=== PATIENT | male | born 1965 | race Caucasian/White ===

== ENCOUNTER 2023-08-22 10:24 | Outpatient (CLI) | payer OTHER, SELFPAY ==
--- NOTE | 2023-08-22 10:40 | ECG_ITS ---
SEE SCANNED COPY FOR CONFIRMED REPORT MTDD
[2023-08-22 10:51] LABS: Basophils Absolute Auto 0.1 K/mm3 (0.0-0.1); Basophils Percent Auto 0.5 % (0.2-1.2); Eosinophils Absolute Auto 0.1 K/mm3 (0-0.3); Eosinophils Percent Auto 1.3 % (0-4.4); Hematocrit 52.7 % (42.0-52.0); Hemoglobin 18.4 g/dL (14.0-18.0); Immature Granulocyte Absolute 0.06 K/mm3 (0.00-0.031); Immature Granulocyte Percent A 0.6 % (0-0.5); Lymphocytes Absolute Auto 1.81 K/mm3 (0.9-3.2); Mean Corpuscular HGB Conc 34.9 g/dl (32-36); Mean Corpuscular Volume 94.4 fl (80-100); Mean Platelet Volume 10.6 fl (7.4-10.4); Monocytes Percent Auto 9.8 % (2.6-8.5); Neutrophils Absolute Auto 7.5 K/mm3 (1.3-6.7); Neutrophils Percent Auto 70.8 % (45.5-73.1); Platelet Count Result 269 k/mm3 (150-375); Red Blood Count 5.58 M/mm3 (4.6-6.20); Red Cell Distribution Width 11.9 % (11.5-14.5); White Blood Count 10.6 K/mm3 (4.5-10.0)
[2023-08-22 11:17] LABS: Creatinine Urine 84.1 mg/dL
[2023-08-22 11:21] LABS: MALB Creatinine Ratio 7.8 mg/g (0-30); Microalbumin Urine Random 6.6 mg/L (0-16.7)
[2023-08-22 11:53] LABS: Alanine Aminotransferase 38 U/L (6-50); Albumin Level 4.8 g/dL (3.5-5.1); Alkaline Phosphatase 160 U/L (38-126); Anion Gap 14 mmol/L (4-12); Aspartate Amino Transferase 46 U/L (17-59); Bilirubin,Total 1.8 mg/dL (0.2-1.3); Blood Urea Nitrogen 29 mg/dL (9-20); Carbon Dioxide 21 mmol/L (22-30); Chloride 100 mmol/L (98-107); Estimated Glomerular Filt Rate > 60; Glucose 241 mg/dL (65-110); LDL Cholesterol Direct 181 mg/dL; Potassium 4.4 mmol/L (3.4-5.0); Prostate Specific Antigen 0.8 ng/mL (< OR = 4.0); Sodium 135 mmol/L (137-145)
[2023-08-22 12:03] LABS: Cholesterol 381 mg/dL (0-200); Triglycerides 934 mg/dL (<150)
== END 2023-08-22 10:25 | disposition home or self-care (01) ==
LOC: ANHLAB 10:26
PROVIDERS: PCP Family Medicine; Visit Provider Physician Assistant
DX: Z12.5 Encounter for screening for malignant neoplasm of prostate (principal); E11.65 Type 2 diabetes mellitus with hyperglycemia; E78.5 Hyperlipidemia, unspecified; I10 Essential (primary) hypertension; R07.9 Chest pain, unspecified; Z13.29 Encounter for screening for other suspected endocrine disorder
CPT/HCPCS: 36415; 80053; 80061; 82043; 84153; 84443; 84484; 85025; 93005; G0103

== ENCOUNTER 2023-08-22 12:25 | Observation (INO) | payer OTHER, SELFPAY ==
[2023-08-22] VITALS (8 sets, daily range): BP systolic 119–153; BP diastolic 80–92; PULSE 87–107; RESP 13–20; TEMP 36.3–36.4; O2SAT 91–98; BMI 32.1
--- NOTE | ~2023-08-22 | XR_ITS ---
EXAMINATION: XR chest 2V Exam Date/Time: 08/22/2023 13:00 CDT HISTORY: chest pain RADIATES TO RT ARM X 1 DAY HIGH TROPONIN Comparison: None. RESULT: Lines, tubes, and devices: None. Lungs and pleura: Clear. Cardiomediastinal silhouette: Unremarkable. Other: No acute upper abdominal finding. Multilevel mild vertebral body height loss/anterior wedge d eformity at T7-L1. IMPRESSION: No acute cardiopulmonary process. Multilevel thoracic and lumbar vertebral body compression fractures, may be acute or chronic, correla te with pain/tenderness. Reviewed, dictated and finalized at location K. IMPRESSION: No acute cardiopulmonary process. Multilevel thoracic and lumbar vertebral body compression fractures, may be acu te or chronic, correlate with pain/tenderness.
--- NOTE | 2023-08-22 12:37 | ECG_ITS ---
SEE SCANNED COPY FOR CONFIRMED REPORT MTDD
[2023-08-22] MEDS: ASPIRIN 81 MG CHEWABLE TABLET 324 MG PO (12:48)
--- NOTE | 2023-08-22 12:48 | PC.NURSE ---
pt took (1) 81mg aspiring prior to arrival.
[2023-08-22 13:03] LABS: Basophils Absolute Auto 0.1 K/mm3 (0.0-0.1); Basophils Percent Auto 0.6 % (0.2-1.2); Eosinophils Absolute Auto 0.1 K/mm3 (0-0.3); Eosinophils Percent Auto 1.3 % (0-4.4); Hematocrit 53.1 % (42.0-52.0); Hemoglobin 18.3 g/dL (14.0-18.0); Immature Granulocyte Absolute 0.04 K/mm3 (0.00-0.031); Immature Granulocyte Percent A 0.4 % (0-0.5); Lymphocytes Absolute Auto 2.03 K/mm3 (0.9-3.2); Lymphocytes Percent Auto 19.7 % (18.3-44.2); Mean Corpuscular HGB Conc 34.5 g/dl (32-36); Mean Corpuscular Volume 95.7 fl (80-100); Mean Platelet Volume 10.9 fl (7.4-10.4); Monocytes Absolute Auto 0.9 K/mm3 (0.1-0.6); Monocytes Percent Auto 9.1 % (2.6-8.5); Neutrophils Absolute Auto 7.1 K/mm3 (1.3-6.7); Neutrophils Percent Auto 68.9 % (45.5-73.1); Platelet Count Result 260 k/mm3 (150-375); Red Blood Count 5.55 M/mm3 (4.6-6.20); Red Cell Distribution Width 11.8 % (11.5-14.5); White Blood Count 10.3 K/mm3 (4.5-10.0)
--- NOTE | 2023-08-22 13:08 | PC.NURSE ---
Pt off the floor with xray at this time, pt was taken down by xray without cardiac monitoring.
[2023-08-22 13:11] LABS: Alanine Aminotransferase 38 U/L (6-50); Albumin Level 4.7 g/dL (3.5-5.1); Alkaline Phosphatase 155 U/L (38-126); Anion Gap 11 mmol/L (4-12); Aspartate Amino Transferase 46 U/L (17-59); Bilirubin,Total 1.9 mg/dL (0.2-1.3); Blood Urea Nitrogen 29 mg/dL (9-20); Calcium 9.8 mg/dL (8.4-10.2); Carbon Dioxide 24 mmol/L (22-30); Chloride 97 mmol/L (98-107); Estimated CRCL calculation 75 ml/min; Estimated Glomerular Filt Rate > 60; Glucose 272 mg/dL (65-110); Potassium 4.3 mmol/L (3.4-5.0); Sodium 132 mmol/L (137-145)
[2023-08-22 13:18] LABS: INR 0.9; Prothrombin Time 12.2 Seconds (11.1-14.7)
[2023-08-22 13:19] LABS: Partial Thromboplastin Time 27.1 Seconds (22.3-36.8)
--- NOTE | 2023-08-22 13:26 | ED.GENADULT ---
HPI - General Adult General Chief complaint: Recheck/Abnormal Lab/Rx Stated complaint: elevated trop Time Seen by Provider: 08/22/23 12:37 History of Present Illness HPI narrative: patient is a 58-year-old male with history of diabetes who presents ER with a around the elevated troponin level. Patient reports on 08/18/23 he had about 9 hours of central chest pain/ pressure that radiated to his right shoulder. It did not allow him to sleep. Pain family went away and he was able to sleep. Denies any exertional shortness of breath or chest pain. No diaphoresis or vomiting. No history of heart disease. He follow-up with his doctor due to the chest pain and due to the fact that he is out of his hypertension medication and some of his diabetes medication. Outpatient lab work showed that he had a troponin level of 7.48 and he was referred to the ER. Related Data Home Medications Medication Instructions Recorded Confirmed atorvastatin 10 mg tablet (Lipitor) 10 mg PO HS 08/22/23 08/22/23 dulaglutide 0.75 mg/0.5 mL 0.75 mg subcut WEEKLY 08/22/23 08/22/23 subcutaneous pen injector (Trulicity) empagliflozin 25 mg-metformin ER 1 tablet PO DAILY 08/22/23 08/22/23 1,000 mg tablet,extended release 24hr (Synjardy XR) lisinopril 10 mg tablet 10 mg PO DAILY 08/22/23 08/22/23 Allergies Allergy/AdvReac Type Severity Reaction Status Date / Time Penicillins Allergy Unknown Unknown Verified 08/22/23 09:52 Review of Systems Review of Systems: All systems reviewed & are unremarkable except as noted in HPI and below Constitutional: Constitutional: Reports no additional constitutional complaints ENT: Reports system reviewed and no additional complaints, except as documented Cardiovascular: Cardiovascular: Reports chest pain, Denies rapid heart rate and Reports radiating jaw, neck or arm pain Respiratory: Respiratory: Reports no additional respiratory complaints Gastrointestinal: Gastrointestinal: Reports no additional gastrointestinal complaints Musculoskeletal: Musculoskeletal: Reports no additional musculoskeletal complaints Integumentary/Breasts: Skin/Breast: Reports system reviewed and no additional complaints, except as docu [facility] Past Medical History Medical History (Updated 08/22/23 @ 21:03 by Feliz Vora MD) Cigarette nicotine dependence Hyperlipidemia Hypertension Pancreatitis (11/2020) Type 2 diabetes mellitus Surgical History Surgical History (Updated 08/22/23 @ 17:56 by Jennifer Chaves PA-C) No history of previous surgery Family History Family History (Updated 08/22/23 @ 17:56 by Jennifer Chaves PA-C) Grandparent Family history of type 2 diabetes mellitus Acute myocardial infarction Father No problems noted. Mother No problems noted. Sibling No problems noted. Social History Social History Social History: Surrogate medical decision maker: Cherie Alaniz, mother. Code status: Full code. Smoking packs per day: 0.5 Smoking cigarettes per day: 10.0 Years smoked: 40 Smoking pack-years: 20.00 Smoking status: Current every day smoker Tobacco type: cigarettes Additional smoking assessment comments: Down to 1/2 ppd now Alcohol intake: current Substance use: current Substance use type: marijuana Do You Feel Safe in your Home?: Yes Lack of Transportation: No Lack of Food: Never True Current Housing: I Have Housing Concerned About Future Housing: No Difficulty Paying Gas/Electric Bills: No Difficulty Paying for Meds: No Currently Unemployed: No Education: High School Diploma/GED Difficulty w/ Childcare or Family Care: No Additional living arrangements comments: Lives in [place]. 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 Spiritual care concerns: No Exam Narrative: GENERAL: Well-appearing, well-nourished, and in no acute distress. HEAD: Celeste
--- NOTE | 2023-08-22 15:18 | ECHO_ITS ---
Patient Info Name: Jordon Alaniz Age: 58 years : 1965 Gender: Male Ht: 71 in Wt: 237 lbs BSA: 2.35 m2 HR: 78 bpm BP: 119 / 80 mmHg Heart Rhythm: Sinus Rhythm Technical Quality: Fair Exam Date: 08/22/2023 4:28 PM Exam Location: Echo Lab Exam Room: 210 Patient Status: Inpatient Admit Date: 08/22/2023 Staff Ordering Physician: Feliz Vora MD Commercial Real Estate Associate: Nilsa Stoner RDCS Attending Provider: Fabiana Chang MD Exam Type: CA echo doppler color flow Study Info Indications - elevated troponins chest pain nstemi Complete two-dimensional, color flow and Doppler transthoracic echocardiogram is performed. Summary 1. Complete two-dimensional, color flow and Doppler transthoracic echocardiogram is performed. 2. Left ventricular chamber dimension is normal. 3. Left ventricular systolic function is normal, estimated at 55-60%. 4. There is mildly increased left ventricular wall thickness. 5. The left ventricular diastolic function is grade I diastolic dysfunction. 6. The basal inferior wall is akinetic. 7. The mid inferior wall, and basal inferoseptal are hypokinetic. 8. There is mild tricuspid valve regurgitation. Left Ventricle Left ventricular chamber dimension is normal. Left ventricular systolic function is normal, estimated at 55-60%. There is mildly increased left ventricular wall thickness. The left ventricular diastolic function is grade I diastolic dysfunction. The basal inferior wall is akinetic. The mid inferior wall, and basal inferoseptal are hypokinetic. All other villagran appear normal. Right Ventricle Right ventricular chamber dimension is normal. Right ventricular systolic function is normal. Left Atria Left atrial chamber dimension is normal. Right Atria Right atrial chamber dimension is normal. Atrial Septum Intact interatrial septum visualized by color flow imaging. Aortic Valve The aortic valve is probable trileaflet. There is mild aortic valve sclerosis. There is no aortic valve stenosis. There is trace aortic valve regurgitation. Pulmonic Valve The pulmonic valve is normal. There is no pulmonic valve stenosis. There is trace pulmonic regurgitation. Mitral Valve The mitral valve has normal leaflets. There is no mitral valve stenosis. There is trace mitral valve regurgitation. Tricuspid Valve The tricuspid valve leaflets are normal. There is no significant tricuspid valve stenosis. There is mild tricuspid valve regurgitation. No pulmonary hypertension, estimated pulmonary arterial systolic pressure is 31 mmHg. Pericardium/Pleural The pericardium appears normal. There is no pericardial effusion. Inferior Vena Cava Normal inferior vena cava with >50% collapse upon inspiration consistent with normal right atrial pressure, 10 mmHg. Aorta The aortic root size at the sinus of Valsalva is normal. Left Ventricular Outflow Tract Name Value Normal LVOT 2D LVOT Diameter 2.1 cm LVOT Doppler LVOT Peak Gradient 5 mmHg LVOT Mean Gradient 3 mmHg LVOT VTI 18 cm LVOT VTI/AV VTI Ratio 1.0 LVOT Stroke Volume
--- NOTE | 2023-08-22 15:22 | ECG_ITS ---
SEE SCANNED COPY FOR CONFIRMED REPORT MTDD
--- NOTE | 2023-08-22 15:27 | PC.NURSE ---
3hr EKG 4515 shown to
--- NOTE | 2023-08-22 15:52 | PM.IMHP ---
H&P: HPI History of Present Illness Date/Time: 08/22/23 16:15 Chief Complaint: Elevated troponin. Narrative: This is a pleasant 58-year-old male smoker with hypertension, hyperlipidemia, and type 2 diabetes mellitus who presented to the emergency department at the direction of his primary care provider for further evaluation after he was found to have an elevated troponin on labs drawn this morning. The patient provides the following history. Sunday evening while watching television he developed diffuse anterior chest pain/pressure radiating to his right shoulder associated with nausea and vomiting x2. The pain was severe enough that he was unable to sleep. Initially he thought it was related to indigestion and he took several Tums without relief. Eventually the pain stopped without intervention and it has not returned. Sunday he felt a bit fatigued but he has otherwise been feeling okay since that time. Today he decided to follow-up with his doctor to discuss the event and to refill his antihypertensives and diabetic medications which he has been out of for quite some time. Outpatient labs today demonstrated a troponin of 7.48 for which she was referred to the ED. EKG showed Q-waves in leads 2, 3, and AVF without acute ST segment changes. ED physician consulted with disaster director on-call who felt that the patient had likely competed his FL several days ago and anticoagulation was not recommended. He is being admitted in this setting for further workup. At the time my evaluation he is resting comfortably and he has no complaints. Review of Systems Review of Systems: Twelve systems were reviewed. No fever, chills, or sweats. No recent cold or flu symptoms. He denies blurry vision, polydipsia, and polyuria. He has fallen out of favor of checking his glucose but reports taking it on Sunday and it was over 400 at that time. No significant neuropathy symptoms. Imaging today showed findings of compression fractures in the thoracic and lumbar regions and with further questioning he states that he has not had any back pain or injuries. Except as documented, other systems were reviewed and are negative. [facility] Past Medical History Medical History (Updated 08/22/23 @ 17:57 by Jennifer Chaves PA-C) Cigarette nicotine dependence Hyperlipidemia Hypertension Pancreatitis (11/2020) Type 2 diabetes mellitus Surgical History Surgical History (Updated 08/22/23 @ 17:56 by Jennifer G Gerling, PA-C) No history of previous surgery Family History Family History (Updated 08/22/23 @ 17:56 by Jennifer Chaves PA-C) Grandparent Family history of type 2 diabetes mellitus Acute myocardial infarction Father No problems noted. Mother No problems noted. Sibling No problems noted. Social History Social History Social History: Surrogate medical decision maker: Cherie Alaniz, mother. Code status: Full code. Smoking packs per day: 0.5 Smoking cigarettes per day: 10.0 Years smoked: 40 Smoking pack-years: 20.00 Smoking status: Current every day smoker Tobacco type: cigarettes Additional smoking assessment comments: Down to 1/2 ppd now Alcohol intake: current Substance use: current Substance use type: marijuana Do You Feel Safe in your Home?: Yes Lack of Transportation: No Lack of Food: Never True Current Housing: I Have Housing Concerned About Future Housing: No Difficulty Paying Gas/Electric Bills: No Difficulty Paying for Meds: No Currently Unemployed: No Education: High School Diploma/GED Difficulty w/ Childcare or Family Care: No Additional living arrangements comments: Lives in [place]. 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 Spiritual care concerns: No Meds Home Medications and Allergies Home Medications Medication Instructions Recorded Confirmed Type atorvastatin 10 mg tablet (Lipitor) 10 mg PO
[2023-08-22 16:48] LABS: Glucose Point of Care 230 mg/dl (65-105)
--- NOTE | 2023-08-22 17:12 | ADMGEN ---
This patient, Jordon Alaniz, was admitted to IMU Room 210-01. Patient/family oriented to hospital policies and general routines including ID bracelet, bed and alarms, visiting hours, pain management, procedures, bathroom and other care routines, personal items, smoking policy, room service/diet, and visiting hours. Information on how to activate the Rapid Response Team has been discussed. Patient/Family are encouraged to report perceived risks to care and to ask questions if they do not understand what they are told or what they should do.
--- NOTE | 2023-08-22 18:30 | ECG_ITS ---
SEE SCANNED COPY FOR CONFIRMED REPORT MTDD
[2023-08-22] MEDS: INSULIN ASPART (*BKC) 100 UNITS/ML SUB-Q ×2 (18:55→21:17)
[2023-08-22 20:26] LABS: Glucose Point of Care 259 mg/dl (65-105)
[2023-08-23] VITALS (7 sets, daily range): BP systolic 121–129; BP diastolic 76–89; PULSE 84–96; RESP 14–18; TEMP 36.4–37.3; O2SAT 97–98
[2023-08-23 05:07] LABS: Hematocrit 53.1 % (42.0-52.0); Hemoglobin 17.5 g/dL (14.0-18.0); Mean Corpuscular Hemoglobin 32.7 pg (26-34); Mean Corpuscular Volume 99.3 fl (80-100); Mean Platelet Volume 11.3 fl (7.4-10.4); Platelet Count Result 219 k/mm3 (150-375); Red Blood Count 5.35 M/mm3 (4.6-6.20); Red Cell Distribution Width 11.9 % (11.5-14.5); White Blood Count 9.1 K/mm3 (4.5-10.0)
[2023-08-23 05:18] LABS: Anion Gap 14 mmol/L (4-12); Blood Urea Nitrogen 30 mg/dL (9-20); Calcium 9.3 mg/dL (8.4-10.2); Carbon Dioxide 17 mmol/L (22-30); Chloride 101 mmol/L (98-107); Cholesterol 323 mg/dL (0-200); Estimated CRCL calculation 87 ml/min; Estimated Glomerular Filt Rate > 60; Glucose 199 mg/dL (65-110); Magnesium 2.1 mg/dL (1.6-2.3); Potassium 4.4 mmol/L (3.4-5.0); Sodium 132 mmol/L (137-145)
[2023-08-23 05:27] LABS: LDL Cholesterol Direct 145 mg/dL
[2023-08-23 06:45] LABS: Triglycerides 1272 mg/dL (<150)
[2023-08-23 07:57] LABS: Glucose Point of Care 209 mg/dl (65-105)
--- NOTE | 2023-08-23 09:10 | PM.IMPN ---
Progress Note: A&P Assessment and Plan (1) Non-ST elevation myocardial infarction (NSTEMI): Code(s): I21.4 - Non-ST elevation (NSTEMI) myocardial infarction Status: Acute Assessment and Plan: EKG showed Q-waves in the inferior leads and by his history it seems as though he has completed his infarction. Dr. Torre (cardiology) has been consulted at this time she does not feel he needs to be anticoagulated due to this fact. He received aspirin 324 mg in the ED and has been started on a daily aspirin. Check lipids in a.m.; atorvastatin increased to 80 mg daily. Echocardiogram has been ordered. Echocardiogram has been ordered. 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 Initiate sliding scale insulin, Accu-Cheks, and hypoglycemic protocol. Hemoglobin A1c today was 12.5%. (3) Hypertension: Qualifiers: Hypertension type: unspecified Qualified Code(s): I10 - Essential (primary) hypertension Code(s): I10 - Essential (primary) hypertension Status: Acute Assessment and Plan: Blood pressures were reviewed and they have been running in the 120s systolic and will be monitored closely. Continue lisinopril 10 mg daily. Would benefit from beta blockade though will wait for echocardiogram.? (4) Hyperlipidemia: Qualifiers: Hyperlipidemia type: mixed hyperlipidemia Qualified Code(s): E78.2 - Mixed hyperlipidemia Code(s): E78.5 - Hyperlipidemia, unspecified Status: Acute Assessment and Plan: Check lipids in a.m.; atorvastatin increased to 80 mg daily.? (5) Cigarette nicotine dependence: Qualifiers: Substance use status: uncomplicated Qualified Code(s): F17.210 - Nicotine dependence, cigarettes, uncomplicated Code(s): F17.210 - Nicotine dependence, cigarettes, uncomplicated Status: Acute Assessment and Plan: Smoking cessation is imperative and was discussed. (6) Compression fracture: Status: Acute Assessment and Plan: Multilevel compression fractures noted on chest x-ray are presumably old as he has no symptoms and denies recent injuries. Subjective Date/time seen: 08/23/23 09:10 Interval history: This is a pleasant 58-year-old male smoker with hypertension, hyperlipidemia, and type 2 diabetes mellitus who presented to the emergency department at the direction of his primary care provider for further evaluation after he was found to have an elevated troponin on labs drawn this morning. Interval history: 08/22: Objective Data Vital Signs Vital Signs: Vital Signs - 24 hr 08/22/23 12:44 08/22/23 12:52 08/22/23 13:17 Temperature 97.3 F L Pulse Rate 107 H 102 H 95 Respiratory Rate 17 13 19 Blood Pressure 133/88 153/92 H 119/80 Pulse Oximetry 98 95 91 Oxygen Delivery Room Air 08/22/23 15:35 08/22/23 16:00 08/22/23 18:00 Temperature 97.6 F Pulse Rate 90 87 96 Respiratory Rate 16 Blood Pressure 122/85 Pulse Oximetry 98 Oxygen Delivery 08/22/23 19:55 08/22/23 20:00 08/22/23 20:00 Temperature 97.5 F L Pulse Rate 89 96 Respiratory Rate 20 Blood Pressure 123/83 Pulse Oximetry 93 Oxygen Delivery Room Air 08/22/23 23:47 08/23/23 00:00 08/23/23 00:00 Temperature 97.6 F Pulse Rate 88 96 Respiratory Rate 18 Blood Pressure 121/76 Pulse Oximetry 97 Oxygen Delivery Room Air 08/23/23 04:00 08/23/23 04:42 08/23/23 04:00 Temperature 99.1 F Pulse Rate 84 90 Respiratory Rate 18 Blood Pressure 122/78 Pulse Oximetry 98 Oxygen Delivery Room Air 08/23/23 07:51 Temperature 97.8 F Puls
[2023-08-23] MEDS: ATORVASTATIN 40 MG TABLET 80 MG PO (09:11)
[2023-08-23] MEDS: ENOXAPARIN 40 MG/0.4 ML SYRINGE SUB-Q (09:11)
[2023-08-23] MEDS: ASPIRIN 81 MG ENTERIC TABLET PO (09:11)
[2023-08-23] MEDS: lisinopriL 10 MG TABLET PO (09:11)
[2023-08-23] MEDS: EMPAGLIFLOZIN 25 MG TABLET BY MOUTH (09:25)
--- NOTE | 2023-08-23 09:39 | PM.CNCAR ---
Assessment and Plan Assessment and plan (1) Non-ST elevated myocardial infarction (non-STEMI): Code(s): I21.4 - Non-ST elevation (NSTEMI) myocardial infarction Status: Acute Assessment and Plan: Has already completed his myocardial infarction at this point, with peak troponin of 7.480. EKG with sinus rhythm with old inferior infarct. Echocardiogram with LVEF 55-60%, grade 1 diastolic dysfunction, akinesis of the basal inferior wall, hypokinesis of the mid inferior wall and basal inferoseptal villagran, mild tricuspid regurgitation. Discussed diagnosis of myocardial infarction with the patient and next management steps of cardiac catheterization vs medical management only. Discussed indication for cardiac catheterization, procedure details, risks vs benefits. Discussed the possibility of needing coronary stent placement, also discussed with patient that he is higher risk for multivessel coronary artery disease given his diabetes and the management options if he was found with multivessel disease. My recommendation was to proceed with cardiac catheterization, however, after discussion with the patient, he would like to do medical management only and declines cardiac catheterization at this time. Patient understands that he is at risk of recurrent DC, and the complications of DC, which include . Continue ASA 81mg once daily indefinitely. Will start Plavix 75mg once daily for medical management of NSTEMI. Patient was started on Atorvastatin 10mg once daily by PCP, however, I will increase that to 80mg once daily. Has had issues with myalgias on statins previously. If he cannot tolerate statins, he will need either Repatha or Leqvio (would prefer Leqvio in this patient as it will be easier to stay compliant). Will arrange for close outpatient follow up in our office. Okay to discharge patient home today. Instructed patient that he should go to his nearest ER if he develops chest pain again. 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 Management as per Hospitalist. (3) Hypertension: Qualifiers: Hypertension type: unspecified Qualified Code(s): I10 - Essential (primary) hypertension Code(s): I10 - Essential (primary) hypertension Status: Acute Assessment and Plan: At goal. Continue Lisinopril. (4) Hyperlipidemia: Qualifiers: Hyperlipidemia type: mixed hyperlipidemia Qualified Code(s): E78.2 - Mixed hyperlipidemia Code(s): E78.5 - Hyperlipidemia, unspecified Status: Acute Assessment and Plan: LDL is 145. Triglycerides are 1272! Patient was started on Atorvastatin 10mg once daily by PCP, however, I will increase that to 80mg once daily. Has had issues with myalgias on statins previously. If he cannot tolerate statins, he will need either Repatha or Leqvio (would prefer Leqvio in this patient as it will be easier to stay compliant). Has been started on fibrate by Hospitalist, agree with this. (5) Cigarette nicotine dependence: Qualifiers: Substance use status: uncomplicated Qualified Code(s): F17.210 - Nicotine dependence, cigarettes, uncomplicated Code(s): F17.210 - Nicotine dependence, cigarettes, uncomplicated Status: Acute Assessment and Plan: Discussed smoking cessation. Offered nicotine patches, but patient declined, he will work on smoking cessation. History of Present Illness History of Present Illness Consult date/time: 08/23/23 09:39 Requesting physician: Feliz Vora MD Consult reason: Other (NSTEMI) Reason For Visit: nstemi Narrative: We are consulted for NSTEMI. This is a 58 year old male hypertension, h
[2023-08-23] MEDS: CLOPIDOGREL BISULFATE 75 MG TABLET PO (10:46)
--- NOTE | 2023-08-23 14:39 | PCCCNOTE ---
On 08/23/23, the student, Dalila Junior, provided care and completed [facility] documentation on this patient. I have reviewed the student's documentation and agree with the findings.
--- NOTE | 2023-08-23 19:56 | PM.DS ---
DS: Admitting Diagnosis Discharge Date 08/23/23 Admitting Diagnosis chest pain, elevated troponin DS: Discharge Diagnosis Discharge Diagnosis Plan ?Code(s): I21.4 - Non-ST elevation (NSTEMI) myocardial infarction ?Status:?Acute ?Assessment and Plan: EKG showed Q-waves in the inferior leads and by his history it seems as though he has completed his infarction. Dr. Torre (cardiology) has been consulted at this time she does not feel he needs to be anticoagulated due to this fact. He received aspirin 324 mg in the ED and has been started on a daily aspirin. Check lipids in a.m.; atorvastatin increased to 80 mg daily. Echocardiogram has been ordered. Echocardiogram has been ordered. (2) Type 2 diabetes mellitus with hyperglycemia: ?Qualifiers: ?Diabetes mellitus terminal operations supervisor insulin use:?without snf use? Qualified Code(s):?E11.65 - Type 2 diabetes mellitus with hyperglycemia ?Code(s): E11.65 - Type 2 diabetes mellitus with hyperglycemia ?Status:?Acute ?Assessment and Plan: Continue empagliflozin but hold metformin as he may require cardiac catheterization. Initiate sliding scale insulin, Accu-Cheks, and hypoglycemic protocol. Hemoglobin A1c today was 12.5%. (3) Hypertension: ?Qualifiers: ?Hypertension type:?unspecified? Qualified Code(s):?I10 - Essential (primary) hypertension ?Code(s): I10 - Essential (primary) hypertension ?Status:?Acute ?Assessment and Plan: Blood pressures were reviewed and they have been running in the 120s systolic and will be monitored closely. Continue lisinopril 10 mg daily. Would benefit from beta blockade though will wait for echocardiogram.? (4) Hyperlipidemia: ?Qualifiers: ?Hyperlipidemia type:?mixed hyperlipidemia? Qualified Code(s):?E78.2 - Mixed hyperlipidemia ?Code(s): E78.5 - Hyperlipidemia, unspecified ?Status:?Acute ?Assessment and Plan: Check lipids in a.m.; atorvastatin increased to 80 mg daily.? (5) Cigarette nicotine dependence: ?Qualifiers: ?Substance use status:?uncomplicated? Qualified Code(s):?F17.210 - Nicotine dependence, cigarettes, uncomplicated ?Code(s): F17.210 - Nicotine dependence, cigarettes, uncomplicated ?Status:?Acute ?Assessment and Plan: Smoking cessation is imperative and was discussed. (6) Compression fracture: ?Status:?Acute ?Assessment and Plan: Multilevel compression fractures noted on chest x-ray are presumably old as he has no symptoms and denies recent injuries. DS: Summary Hospital Course Reason for hospitalization: NSTEMI Hospital Course: HPI obtained from the [facility] This is a pleasant 58-year-old male smoker with hypertension, hyperlipidemia, and type 2 diabetes mellitus who presented to the emergency department at the direction of his primary care provider for further evaluation after he was found to have an elevated troponin on labs drawn this morning. The patient provides the following history. Sunday evening while watching television he developed diffuse anterior chest pain/pressure radiating to his right shoulder associated with nausea and vomiting x2. The pain was severe enough that he was unable to sleep. Initially he thought it was related to indigestion and he took several Tums without relief. Eventually the pain stopped without intervention and it has not returned. Sunday he felt a bit fatigued but he has otherwise been feeling okay since that time. Today he decided to follow-up with his doctor to discuss the event and to refill his antihypertensives and diabetic medications which he has been out of for quite some time. Outpatient labs today demonstrated a troponin of 7.48 for which she was referred to the ED. EKG showed Q-waves in leads 2, 3, and AVF without acute ST segment changes. ED physician consulted with cryogenics engineer on-call who felt that the patient had likely competed his KS several days ago and anticoagulation was not recommende
== END 2023-08-23 11:59 | disposition home or self-care (01) ==
LOC: ANHED 14:11 → ANHIMU 15:36
PROVIDERS: Physician Assistant; Admitting Provider Family Medicine; Emergency Provider Emergency Medicine; PCP Family Medicine; Visit Provider Hospitalist
DX: I21.4 Non-ST elevation (NSTEMI) myocardial infarction (principal); E11.65 Type 2 diabetes mellitus with hyperglycemia; I11.9 Hypertensive heart disease without heart failure; E78.2 Mixed hyperlipidemia; R94.31 Abnormal electrocardiogram [ECG] [EKG]; M48.55XA Collapsed vertebra, not elsewhere classified, thoracolumbar region, initial encounter for fracture; F17.210 Nicotine dependence, cigarettes, uncomplicated; F10.90 Alcohol use, unspecified, uncomplicated; F12.90 Cannabis use, unspecified, uncomplicated; Z79.85 Long-term (current) use of injectable non-insulin antidiabetic drugs; Z79.84 Long term (current) use of oral hypoglycemic drugs; Z79.82 Long term (current) use of aspirin; Z79.02 Long term (current) use of antithrombotics/antiplatelets; Z79.899 Other long term (current) drug therapy
CPT/HCPCS: 36415; 71046; 80048; 80053; 80061; 82043; 82948; 83735; 84153; 84443; 84484; 85025; 85027; 85610; 85730; 93005; 93306; 96372; 99285; A9270; G0103; G0378; J1650; J1815